=== PATIENT | female | born 1975 | race Caucasian/White ===

== ENCOUNTER 2024-07-27 05:55 | Emergency (ER) | payer SELFPAY ==
[2024-07-27] MEDS ORDERED: Ketorolac Tromethamine 60 MG/2 ML VIAL ONE (06:31)
== END 2024-07-27 06:50 | disposition home or self-care (01) ==
LOC: BURERS 05:55
DX: M54.6 Pain in thoracic spine (principal)
CPT/HCPCS: 96372; 99283; J1885